=== PATIENT | male | born 1980 | race African-American/Black ===

== ENCOUNTER 2018-11-28 12:20 | Emergency (ER) | payer SELFPAY ==
[~2018-11-28] VITALS: Ht 165.1 cm; Wt 77.1 kg
--- NOTE | 2018-11-28 13:00 | NUR ---
PATIENT CALLED FROM TRIAGE, NO RESPONSE
== END 2018-11-28 16:27 | disposition home or self-care (01) ==
LOC: ER 12:20
DX: R10.33 Periumbilical pain (principal); K42.9 Umbilical hernia without obstruction or gangrene
CPT/HCPCS: 99284